=== PATIENT | female | born 1985 | race Caucasian/White ===

== ENCOUNTER 2021-07-06 15:13 | Emergency (ER) | payer OTHER ==
[~2021-07-06] VITALS: Ht 162.6 cm; Wt 49.9 kg
[~2021-07-06 15:13] MED LIST: ATIVAN0.5 MG; CLEOCIN HCL300 MG PO; FLAGYL500 MG PO; NOHOMEMEDICATIONS; PHENERGAN 25 MG25 M1 PO; PHENERGAN50 MG RC; ULTRAM 50MG TAB50 MG PO; ZOFRAN4 MG PO
[2021-07-06] MEDS ORDERED: ZOFRAN4 MG PO (15:28)
[2021-07-06 16:11] LABS: ABSOLUTE NEUTROPHILS 6.9 thou/uL (1.4-8.2); BASOPHILS 0.4 % (0.0-2.0); EOSINOPHILS 0.6 % (0.0-3.0); HEMATOCRIT 34.1 % (37.0-47.0); HEMOGLOBIN 11.8 gm/dL (12.0-15.0); LYMPHOCYTES 13.9 % (24.0-44.0); MCH 32.8 pg (26.0-34.0); MCHC 34.6 g/dL (28.0-37.0); MCV 94.7 fL (80.0-100.0); MONOCYTES 5.8 % (1.0-8.0); PLATELET COUNT 267 thou/uL (150-400); POLYS 79.3 % (36.0-66.0); RDW 13.3 % (10.5-14.5); WBC 8.8 thou/uL (4.0-11.0)
[2021-07-06 16:21] LABS: CALCIUM 8.4 mg/dL (8.5-10.1); CREATININE 0.8 mg/dL (0.6-1.0); POTASSIUM 3.7 mmol/L (3.5-5.1)
[2021-07-06 17:35] LABS: URINE BILIRUBIN NEGATIVE (Negative); URINE BLOOD 1+ (Negative); URINE CLARITY CLEAR; URINE COLOR YELLOW; URINE GLUCOSE-RANDOM* NEGATIVE (Negative); URINE KETONES NEGATIVE (Negative); URINE LEUKOCYTES-REFLEX NEGATIVE (Negative); URINE NITRITE-REFLEX NEGATIVE (Negative); URINE PROTEIN (DIPSTICK) NEGATIVE (Negative); URINE SPECIFIC GRAVITY 1.025 (1.005-1.035); URINE UROBILINOGEN 0.2 E.U./dl (0.2-1.0)
[2021-07-06 17:43] LABS: BACTERIA-REFLEX 1-9 Few /HPF (None Seen); CASTS None Seen /LPF (None Seen); CRYSTALS None Seen /LPF (None Seen); SQUAMOUS 0-3 Few /LPF (0-3); URINE RBC 1-2 Rare /HPF (NONE SEEN); URINE WBC-REFLEX 0-5 Rare /HPF (0-5)
[2021-07-06 18:07] VITALS: BP 103/42
== END 2021-07-06 18:22 | disposition home or self-care (01) ==
LOC: ER 15:13
PROVIDERS: Emergency Medicine
DX: O26.891 Other specified pregnancy related conditions, first trimester (principal); O47.02 False labor before 37 completed weeks of gestation, second trimester; Z3A.17 17 weeks gestation of pregnancy; F17.210 Nicotine dependence, cigarettes, uncomplicated; Z79.899 Other long term (current) drug therapy; Z88.5 Allergy status to narcotic agent; Z88.0 Allergy status to penicillin